=== PATIENT | female | born 1940 | race Caucasian/White ===

== ENCOUNTER 2016-08-14 05:49 | Inpatient (IN) | payer OTHER, BC ==
[~2016-08-14] VITALS: Ht 152.4 cm; Wt 69.1 kg
--- NOTE | ~2016-08-14 | 2DMMODE ---
[facility] [address] [place] [address] 2 D/M-MODE ECHOCARDIOGRAM Name: BOY LAIRD I Room #: 211-P ADM IN M.R.#: [id number] Admission: 08/14/16 Attend Phys: Arden Josue Discharge: Date of : 42 Date of Service: 08/14/16 1559 Report #: [id number] THIS REPORT FOR: //name// APPROVED REPORT Study performed: 08/14/2016 14:17:36 EXAM: Comprehensive 2D, Doppler, and color-flow Echocardiogram Patient Location: Bedside Room #: 211 Status: routine Other Information Study Quality: Adequate Indications Congestive Heart Failure Dyspnea Hx PM 2D Dimensions RVDd: 31.47 mm LVEF(%): 66.39 (>50%) IVSd: 10.72 (7-11mm) LVOT Diam: 20.30 (18-24mm) LVDd: 47.78 mm PWd: 9.85 (7-11mm) Ascending Ao: 37.60 (22-36mm) LVDs: 30.26 (25-40mm) Aortic Root: 31.28 mm Underwood's LVEF: 66.39 % Volumes Left Atrial Volume (Systole) Single Plane 4CH: 43.75 mL Single Plane 2CH: 53.67 mL Aortic Valve AoV Peak Darin.: 1.95 m/s AO Peak Gr.: 15.19 mmHg LVOT Max P.45 mmHg LVOT Max V: 1.17 m/s MADDISON Vmax: 1.94 cm2 AI Vmax: 3.65 m/s AI Portage: 2.51 m/s2 AI PHT: 421.74 ms Mitral Valve E/A Ratio: 0.8 MV Decel. Time: 232.13 ms [facility] [address] [place] [address] 2 D/M-MODE ECHOCARDIOGRAM Name: BOY LAIRD I Room #: 211-P [facility] IN ..#: [id number] Admission: 08/14/16 Attend Phys: Arden Josue Discharge: Date of : 42 Date of Service: 08/14/16 1559 Report #: [id number] MV E Max Darin.: 1.31 m/s MV A Darin.: 1.56 m/s MV PHT: 67.32 ms IVRT: 106.11 ms Pulmonary Valve PV Peak Darin.: 0.95 m/s PV Peak Gr.: 3.69 mmHg Tricuspid Valve TR Peak Darin.: 3.22 m/s RAP Estimate: 5.00 mmHg TR Peak Gr.: 41.59 mmHg PA Pressure: 47.00 mmHg Left Ventricle The left ventricle is normal size. Hypokinesis of distal septum, distal anterior wall, apex, and inferoapex. Mild basal septal hypertrophy is present. Left ventricular systolic function is moderately decreased. LVEF is 40%. Grade I - abnormal relaxation pattern. Right Ventricle The right ventricle is normal size. Right ventricle is mildly hypokinetic. Pacemaker lead is present in the right ventricle. Atria Left atrium is mildly dilated. The right atrium size is normal. Aortic Valve Aortic valve is calcified, trileaflet. Mild to moderate aortic regurgitation. Mild aortic stenosis with a valve area of 1.9 cm2 by continuity equation Mitral Valve Moderate mitral annular calcification. Mitral valve leaflets are moderately calcified. Moderate mitral regurgitation. Borderline mild mitral stenosis. Tricuspid Valve The tricuspid valve is normal in structure. There is moderate tricuspid regurgitation. The right atrial pressure is estimated at 5 mmHg. There is moderate pulmonary hypertension with an estimated PAP of 47 mmHg. Pulmonic Valve The pulmonary valve is normal in structure. Trace pulmonic [facility] [address] [place] [address] 2 D/M-MODE ECHOCARDIOGRAM Name: BOY LAIRD I Room #: 211-P [facility] IN .R.#: [id number] Admission: 08/14/16 Attend Phys: Arden Josue Discharge: Date of : 42 Date of Service: 08/14/16 1559 Report #: [id number] regurgitation. Great Vessels The aortic root is normal in size. The ascending aorta is borderline dilated. IVC is normal in size and collapses >50% with inspiration. Pericardium There is no pericardial effusion. <Conclusion> Left ventricular systolic function is moderately decreased. Hypokinesis of distal septum, distal anterior wall, apex, and inferoapex. LVEF is 40%. Grade I diastolic dysfunction. Left atrium is mildly dilated. Aortic valve is calcified, trileaflet. Very mild stenosis. Mild to moderate aortic regurgitation. Mitral valve leaflets are moderately calcified, moderate mitral annular calcification. Moderate mitral regurgitation. There is moderate pulmonary hypertension with an estimated PAP of 45 mmHg. There is no pericardial effusion. <ELECTRONICALLY SIGNED> By: Chris Guzmán MD, [facility] 08/14/16 1559 1559 1559 Chris Guzmán MD, [facility] /INF
--- NOTE | ~2016-08-14 | CATHLAB ---
[facility] [address] [place] [address] INVASIVE PROCEDURE REPORT [facility] Room #: 211-P [facility] IN ..#: [id number] Admission: 08/14/16 Attend Phys: Arden Josue Discharge: 08/17/16 Date of : 42 Date of Service: 08/26/16 1701 Report #: [id number] THIS REPORT FOR: //name// APPROVED REPORT Patient Details Patient Status: In-Patient Room #: The patient is a 76 year-old female Procedures Performed Left heart catheterization, selective left and right coronary angiography, measurement of left ventricular end-diastolic pressure, supervision of conscious sedation. Indication Palpitations, Dyspnea, Chest pain Procedure Narrative The patient was brought electively to the Cardiac Catheterization Laboratory and was prepped and draped in a sterile manner. The Right Groin^ was infiltrated with 1% Lidocaine subcutaneous anesthesia. A PINNACLE 6FR Sheath #[id number] sheath was inserted into the RFA^. Coronary angiography was performed using coronary diagnostic catheters. The right coronary system was accessed and visualized with a JR4 catheter. The left coronary system was accessed and visualized with a JL4 catheter. The left ventricle was accessed and visualized with a PIGTAIL catheter. Left ventricular/Aortic Valve gradient assessed via catheter pullback. Hemostasis was obtained with manual pressure following sheath removal without any complications. The patient tolerated the procedure well and there were no complications associated with the procedure. There was no hematoma. Intraoperative Conscious Sedation Sedation start time: 16:20 Case end Time: 16:33 Versed 2.0 mg Fluoro Time: 2.18 minutes Dose: 356 mGy Contrast Type and Amount: Omnipaque 0 ml Diagnostic Cath Left Main Normal origin and caliber bifurcates into left anterior descending left circumflex and a ramus intermedius. It is free of high-grade disease. [facility] [email or web address] [address] INVASIVE PROCEDURE REPORT Name: BOY LAIRD [facility] Room #: 211-P [facility] IN M.R.#: [id number] Admission: 08/14/16 Attend Phys: Arden Josue Discharge: 08/17/16 Date of : 42 Date of Service: 08/26/16 1701 Report #: [id number] LAD Moderate caliber type III vessel which courses in the anterior interventricular sulcus giving rise to first diagonal branch and septal perforators. Then subsequently versus subsequent diagonal branches as it looks the apex and terminates as a bifurcating vessel and the inferoapical wall Diagonal 1 Small caliber vessel with a 50% eccentric tract eob-deej-uplrzdoj lesion Circumflex Order caliber nondominant vessel terminates in the posterior wall region isn't marginal branch free of high-grade disease Right Coronary Order caliber dominant vessel procedures an AV groove circumflex RV marginal branch of high-grade disease. It then continues on giving rise to posterior descending artery posterior wall branch and a terminal posterolateral branch has luminal irregularities of less than 30%. Ramus Moderate caliber vessel which bifurcates in its mid course and appears to have a small portion one of the branches as a bridge. The lesions are noted Left Ventriculography Left Ventriculography was not performed. Hemodynamics The aortic pressure is 128/55 mmHg with a mean of 80 mmHg. The left ventricular pressure is 130/10 mmHg with a mean of mmHg. The left ventricular end diastolic pressure is 22 mmHg. There was no gradient across the aortic valve upon pullback. Pullback from the left ventricle to the aorta revealed no gradient across the aortic valve. Conclusion 1. 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 Normal hemodynamics 3. Timentin evaluation for other sources of symptoms and optimize his medical regimen Recommendations Medical Therapy <ELECTRONICALLY SIGNED> By: Martin Burgos MD 08/26/161700 00 00 Martin Burgos MD /INF
--- NOTE | ~2016-08-14 | EKG ---
[place] [address] [facility] [place] [address] ELECTROCARDIOGRAM REPORT Name: EITANBOY Dalton I Room #: 170-8 ADM IN M.R.#: [id number] Admission: 08/14/16 Attend Phys: Arden Pearson Discharge: Date of : 42 Report #: [id number] THIS REPORT FOR: //name// [facility] ED Test Date: 2016-08-14 Test Time: 05:54:17 Pat Name: BOY LAIRD Department: Room: 170 Gender: F Rn Triage: [id number] : 1940 Requested By: Zulma Treviño Order Number: [id number] MD: Chris Guzmán Measurements Intervals [place] Rate: 70 P: 0 MI: 70 QRS: -67 QRSD: 162 T: 104 QT: 445 QTc: 481 Interpretive Statements Sinus rhythm with complete heart block left bundle branch block No previous ECG available for comparison Electronically Signed On 08-14-2016 8:37:35 CDT by Chris Guzmán [email or web address] <ELECTRONICALLY SIGNED> By: Chris Guzmán MD, [facility] 08/14/16 0837 0554 0554 Chris Guzmán MD, FACC /EPI
[2016-08-14] MEDS ORDERED: HYDROXYCHLOROQ200 M1 PO (06:17)
[2016-08-14] MEDS ORDERED: LEVOTHYROXIN0.112 M1 PO (06:17)
[2016-08-14] MEDS ORDERED: CLARINEX5 MG PO (06:17)
[2016-08-14] MEDS ORDERED: TOPROL XL100 MG PO (06:18)
[2016-08-14] MEDS ORDERED: LIPITOR40 MG PO (06:18)
[2016-08-14] MEDS ORDERED: DIOVAN320 MG PO (06:18)
[2016-08-14] MEDS ORDERED: HYDROCHLOROTHIA25 M2 PO (06:18)
[2016-08-14] MEDS ORDERED: ACIPHEX 20 MG T20 MG PO (06:19)
[2016-08-14] MEDS ORDERED: PAMELOR25 MG PO (06:19)
[2016-08-14 06:33] LABS: ABSOLUTE NEUTROPHILS 6.5 thou/uL (1.4-8.2); BASOPHILS 0.6 % (0.0-2.0); EOSINOPHILS 0.2 % (0.0-3.0); HEMATOCRIT 45.4 % (37.0-47.0); HEMOGLOBIN 15.4 gm/dL (12.0-15.0); LYMPHOCYTES 22.2 % (24.0-44.0); MCHC 33.9 g/dL (28.0-37.0); MCV 97.4 fL (80.0-100.0); MONOCYTES 2.8 % (1.0-8.0); PLATELET COUNT 135 thou/uL (150-400); POLYS 74.2 % (36.0-66.0); RBC 4.66 mil/uL (4.20-5.00); RDW 14.2 % (10.5-14.5); WBC 8.8 thou/uL (4.0-11.0)
[2016-08-14] MEDS ORDERED: REMICADE 1100 MG/VIA (06:37)
[2016-08-14] MEDS ORDERED: RESTASIS1 EACH OPHTHALMIC (06:45)
[2016-08-14 06:46] LABS: MANUAL DIFF NO
[2016-08-14] MEDS ORDERED: QVAR8.7 G1 IH (06:46)
[2016-08-14 06:47] LABS: CALCIUM 9.6 mg/dL (8.5-10.1); CREATININE 0.9 mg/dL (0.6-1.0); POTASSIUM 3.9 mmol/L (3.5-5.1); TROPONIN-I 0.07 ng/mL (<0.04-0.07)
[2016-08-14] MEDS ORDERED: ASPIR 8181 MG PO (06:48)
[2016-08-14] MEDS ORDERED: DAILY MULTIPLE1 EACH PO (06:49)
[2016-08-14] MEDS ORDERED: OMEGA-31000 M1 PO (06:49)
[2016-08-14] MEDS ORDERED: TUMS (06:49)
[2016-08-14] MEDS ORDERED: ACIDOPHILUS1 EAC3 PO (06:50)
[2016-08-14] MEDS ORDERED: MAGNESIUM OXID400 MG PO (06:51)
[2016-08-14] MEDS ORDERED: TURMERIC500 MG PO (06:51)
[2016-08-14] MEDS ORDERED: VITAMIN B COMP1 EACH PO (06:51)
[2016-08-14 07:24] LABS: DIRECT BILIRUBIN 0.2 mg/dL (<0.1-0.3); MAGNESIUM 2.2 mg/dL (1.8-2.4); TOTAL BILIRUBIN 0.9 mg/dL (<0.1-1.0)
[2016-08-14 07:25] LABS: ALBUMIN 3.8 g/dL (3.4-5.0); CK-MB MASS 2.7 ng/mL (<0.5-3.6); TOTAL PROTEIN 7.5 g/dL (6.4-8.2)
[2016-08-14 07:37] LABS: URINE BILIRUBIN NEGATIVE (Negative); URINE BLOOD NEGATIVE (Negative); URINE COLOR YELLOW; URINE GLUCOSE-RANDOM* NEGATIVE (Negative); URINE KETONES NEGATIVE (Negative); URINE LEUKOCYTES-REFLEX TRACE (Negative); URINE PROTEIN (DIPSTICK) NEGATIVE (Negative); URINE UROBILINOGEN 0.2 E.U./dl (0.2-1.0)
[2016-08-14 08:26] VITALS: BP 125/66
[2016-08-14 11:47] VITALS: BP 120/58
[2016-08-14 20:15] VITALS: BP 123/48
[2016-08-14 22:35] VITALS: BP 152/50
[2016-08-14 23:35] VITALS: BP 114/53
[2016-08-15] VITALS (7 sets, daily range): BP systolic 95–138; BP diastolic 50–68
[2016-08-15 03:43] LABS: CALCIUM 8.9 mg/dL (8.5-10.1); CREATININE 0.6 mg/dL (0.6-1.0); POTASSIUM 3.8 mmol/L (3.5-5.1)
[2016-08-15 03:44] LABS: TROPONIN-I 0.31 ng/mL (<0.04-0.07)
[2016-08-16 03:53] LABS: ALBUMIN 3.5 g/dL (3.4-5.0); CALCIUM 8.8 mg/dL (8.5-10.1); CREATININE 0.9 mg/dL (0.6-1.0); PHOSPHORUS 4.1 mg/dL (2.5-4.9); POTASSIUM 3.3 mmol/L (3.5-5.1); TROPONIN-I 0.12 ng/mL (<0.04-0.07)
[2016-08-16 04:00] VITALS: BP 122/51
[2016-08-16 07:19] VITALS: BP 124/49
[2016-08-16 12:05] VITALS: BP 120/73
[2016-08-16 15:40] VITALS: BP 116/81
[2016-08-16 20:01] VITALS: BP 1401/60
[2016-08-17 03:20] VITALS: BP 155/67
[2016-08-17 04:02] LABS: CALCIUM 9.1 mg/dL (8.5-10.1); CREATININE 0.7 mg/dL (0.6-1.0); POTASSIUM 3.6 mmol/L (3.5-5.1)
[2016-08-17 07:13] VITALS: BP 96/78
[2016-08-17] MEDS ORDERED: LASIX 40 MG TAB40 M1 PO (07:49)
[2016-08-17] MEDS ORDERED: ASPIR 8181 MG PO (07:49)
[2016-08-17 08:04] VITALS: BP 96/78
[2016-08-17 08:48] VITALS: BP 96/78
[2016-08-17 11:33] VITALS: BP 138/60
== END 2016-08-17 12:58 | disposition home or self-care (01) | DRG 286 ==
LOC: EDBD 05:49 → ER 05:49 → 2N 07:29 → EROBS 07:29 → 2N 09:27
PROVIDERS: Emergency Medicine; Hospitalist
PROC: 4A023N7 Measurement of Cardiac Sampling and Pressure, Left Heart, Percutaneous Approach (ICD-10-PCS; principal; 2016-08-14)
DX: I11.0 Hypertensive heart disease with heart failure (principal); J96.00 Acute respiratory failure, unspecified whether with hypoxia or hypercapnia; N17.9 Acute kidney failure, unspecified; I44.2 Atrioventricular block, complete; I50.41 Acute combined systolic (congestive) and diastolic (congestive) heart failure; I35.1 Nonrheumatic aortic (valve) insufficiency; I95.9 Hypotension, unspecified; J45.909 Unspecified asthma, uncomplicated; E78.5 Hyperlipidemia, unspecified; Z95.0 Presence of cardiac pacemaker; Z90.49 Acquired absence of other specified parts of digestive tract; Z90.710 Acquired absence of both cervix and uterus; Z98.42 Cataract extraction status, left eye; Z79.899 Other long term (current) drug therapy; Z98.41 Cataract extraction status, right eye; Z88.2 Allergy status to sulfonamides; Z88.5 Allergy status to narcotic agent; Z91.018 Allergy to other foods
CPT/HCPCS: 10081

== ENCOUNTER 2016-08-20 10:38 | Observation (INO) | payer OTHER, BC ==
[~2016-08-20] VITALS: Ht 152.4 cm; Wt 68.9 kg
--- NOTE | ~2016-08-20 | CATHLAB ---
[facility] [address] [place] [address] INVASIVE PROCEDURE REPORT [facility]: [facility]P [facility]#: [id number] Admission: 08/20/16 Attend Phys: Martin Sawyer Discharge: 08/21/16 Date of : 42 Date of Service: 08/26/16 1734 Report #: [id number] THIS REPORT FOR: //name// APPROVED REPORT Patient Status: In-Patient Room #: 2 [facility] Personnel: Dr. Sinclair, Staff Research Scientist Rosalba Nguyen, RN Anastacio Danielson, Monitor Jess Govea, Scrub Exam: Insertion of Dual Chamber Permanent Pacemaker Indications: HEART BLOCK, pacemaker syndrome The patient is a 76 year-old female with a history of Syncope. Patient Info BUN: 31 Creatine: 1.3 Conscious Sedation Start time: 1319 End Time: 1428 Versed 1.0 mg Demoral 12.5mg Implanted Devices: [employer] RV Lead MODEL # 7731-52 SN#[id number] (CHRONIC) [employer] RA lead MODEL [id number] [id number] EXP 12/10/2016 [employer] generator MODEL # [id number] SN# [id number] EXP 01/09/2018 Procedure The patient underwent informed consent. We discussed the details of the procedure including the risks, which include, but not limited to bleeding, infection, vascular damage, cardiac perforation, and pneumothorax. After informed consent was obtained the patient was brought to the cardiac catheterization laboratory in stable condition. Venogram was then performed to identify subclavian vein patency. Once this was verified the patient was prepped and draped in usual sterile manner. The left chest was appropriately exposed for the procedure. Local anesthetic was instilled along the prior incision and both utilizing sharp and blunt dissection the prior existing pacer was then explanted. Utilizing a modified Seldinger technique and micropuncture system the left subclavian vein was accessed. A 8 [address] was in place so that a MRI compatible [employer] model LPA 1200M model 46 cm length lead was advanced. This lead 09 was [id number]. Under fluoroscopic realization this was advanced and secured in the right [address] [address] INVASIVE PROCEDURE REPORT Name: BOY LAIRD Room #: 209-P [facility] IN ..#: [id number] Admission: 08/20/16 Attend Phys: Martin Sawyer Discharge: 08/21/16 Date of : 42 Date of Service: 08/26/16 1734 Report #: [id number] atrial appendage. Capture and sensing thresholds were obtained and verified. Antibiotic solution was then utilized to irrigate the pocket the device and the entire chest prior to implantation of the device. Closure was ensued with nonabsorbable sutures in running locking stitch of the deep tissue. The skin was closed with a 30 absorbable running subcuticular. Steri-Strips 4 x 4 OpSite was then utilized. Patient tolerated procedure well and there were no complications. Left arm immobilizer was placed. Electrode Parameters P Wave: 5.3 Atrial Threshold: 0.6 Atrial Resistance: 477 Single Chamber The ventricular lead was attached to the appropriate receptacle on the pulse generator and set screws firmly tightened to insure adequate contact and stability. Findings Specimens Removed: No Conclusion 1. Successful upgrade of a single chamber pacemaker to a dual-chamber pacemaker with MRI compatible hardware Recommendations 1. Routine post implantation protocol <ELECTRONICALLY SIGNED> By: Martin Burgos MD 08/26/16 1734 1734 1734 Martin Burgos MD /INF
[~2016-08-20 10:38] MED LIST: ACIDOPHILUS1 EAC3 PO; ACIPHEX 20 MG T20 MG PO; ASPIR 8181 MG PO; CLARINEX5 MG PO; DAILY MULTIPLE1 EACH PO; DIOVAN320 MG PO; HYDROCHLOROTHIA25 M2 PO; HYDROXYCHLOROQ200 M1 PO; LASIX 40 MG TAB40 M1 PO; LEVOTHYROXIN0.112 M1 PO; LIPITOR40 MG PO; MAGNESIUM OXID400 MG PO; OMEGA-31000 M1 PO; PAMELOR25 MG PO; QVAR8.7 G1 IH; REMICADE 1100 MG/VIA; RESTASIS1 EACH OPHTHALMIC; TOPROL XL100 MG PO; TUMS; TURMERIC500 MG PO; VITAMIN B COMP1 EACH PO
[2016-08-20 11:46] VITALS: BP 101/47
[2016-08-20 12:03] LABS: HEMATOCRIT 44.3 % (37.0-47.0); HEMOGLOBIN 15.3 gm/dL (12.0-15.0); MCHC 34.5 g/dL (28.0-37.0); MCV 95.7 fL (80.0-100.0); RBC 4.63 mil/uL (4.20-5.00); RDW 13.6 % (10.5-14.5); WBC 5.1 thou/uL (4.0-11.0)
[2016-08-20 12:11] LABS: CALCIUM 9.5 mg/dL (8.5-10.1); CREATININE 1.3 mg/dL (0.6-1.0); POTASSIUM 4.4 mmol/L (3.5-5.1)
[2016-08-20 12:15] LABS: INR 1.1
[2016-08-20 15:15] VITALS: BP 120/54
[2016-08-20] MEDS ORDERED: LEVOTHYROXIN0.125 M1 PO (15:26)
[2016-08-20 19:46] VITALS: BP 102/65
[2016-08-21 03:43] VITALS: BP 119/43
[2016-08-21 07:29] VITALS: BP 147/56
[2016-08-21] MEDS ORDERED: POTASSIUM20 PO (08:23)
[2016-08-21 09:47] VITALS: BP 147/56
[2016-08-21 10:16] VITALS: BP 147/56
== END 2016-08-21 14:09 | disposition home or self-care (01) ==
LOC: CATH 10:38 → 2N 14:58
PROVIDERS: Internal Medicine
DX: I44.2 Atrioventricular block, complete (principal); J45.909 Unspecified asthma, uncomplicated; I50.9 Heart failure, unspecified; I97.190 Other postprocedural cardiac functional disturbances following cardiac surgery